=== PATIENT | male | born 1990 | race American Indian/Alaskan Native ===

== ENCOUNTER 2019-01-18 22:32 | Emergency (ER) | payer OTHER, SELFPAY ==
[2019-01-19] MEDS ORDERED: ZITHROMAX PO ONE (01:36)
[2019-01-19] MEDS ORDERED: ROCEPHIN IM ONE (01:36)
[2019-01-19] MEDS ORDERED: XYLOCAINE 1% MPF 5 mL INFILTRATI ONE (01:36)
[2019-01-19] MEDS ORDERED: LIDOCAINE VISCOUS 2% PO ONE (01:36)
[2019-01-19] MEDS ORDERED: REGLAN PO ONE (01:37)
[2019-01-19] MEDS ORDERED: IBUPROFEN PO ONE (01:37)
--- NOTE | 2019-01-19 02:15 | Emergency Department Report ---
ED General Adult HPI - General Chief complaint: Sore Throat Stated complaint: THROAT PAIN WITH MUCUS Source: patient Mode of arrival: Ambulatory Limitations: No Limitations - History of Present Illness Initial comments: Patient is a 29-year-old -Pakistani male with no past medical history presents to the ED with complaint of acute onset persistent severe sore throat with dysphagia and swollen tonsils after having oral sex per days ago. The patient states that he is not sure whether the sore throat is from a sexual transmitted disease or streptococcal pharyngitis. Patient denies headache, nausea, vomiting, dizziness, chest pain, shortness of breath, fever or chills or nasal and sinus congestion. MD Complaint: SORE THROAT, SWOLLEN TONSILS -: Sudden, days(s) (3) Location: mouth Radiation: non-radiation Severity scale (0 -10): 5 Quality: burning, aching, sharp Consistency: constant Improves with: none Worsens with: eating Associated Symptoms: denies other symptoms. denies: confusion, chest pain, cough, diaphoresis, fever/chills, headaches, loss of appetite, malaise, rash, seizure, shortness of breath, syncope, weakness Treatments Prior to Arrival: none - Related Data Previous Rx's Medication Instructions Recorded Last Taken Type Ibuprofen [Motrin] 600 mg PO Q8H PRN #20 tablet 11/07/18 Unknown Rx Sulfamethoxazole/Trimethoprim 1 each PO BID #14 tablet 11/07/18 Unknown Rx [Bactrim DS TAB] Azithromycin [Zithromax Z-MIKE] 250 mg PO DAILY #6 tablet 01/19/19 Unknown Rx Ibuprofen [Motrin] 800 mg PO Q8HR PRN #20 tablet 01/19/19 Unknown Rx Lidocaine Viscous 2% 10 ml PO Q6H PRN #120 ml 01/19/19 Unknown Rx Allergies Allergy/AdvReac Type Severity Reaction Status Date / Time No Known Allergies Allergy Unverified 11/07/18 10:08 ED Review of Systems ROS: Stated complaint: THROAT PAIN WITH MUCUS Other details as noted in HPI Comment: All other systems reviewed and negative Constitutional: denies: chills, fever Eyes: denies: eye pain, eye discharge, vision change ENT: throat pain. denies: ear pain Respiratory: denies: cough, shortness of breath, wheezing Cardiovascular: denies: chest pain, palpitations Endocrine: no symptoms reported Gastrointestinal: denies: abdominal pain, nausea, diarrhea Genitourinary: denies: urgency, dysuria Musculoskeletal: denies: back pain, joint swelling, arthralgia Skin: denies: rash, lesions Neurological: denies: headache, weakness, paresthesias Psychiatric: denies: anxiety, depression Hematological/Lymphatic: denies: easy bleeding, easy bruising ED Past Medical Hx - Past Medical History Previous Medical History?: No - Surgical History Past Surgical History?: No - Social History Smoking Status: Never Smoker Substance Use Type: Alcohol - Medications Home Medications: Home Medications Medication Instructions Recorded Confirmed Last Taken Type Ibuprofen [Motrin] 600 mg PO Q8H PRN #20 tablet 11/07/18 Unknown Rx Sulfamethoxazole/Trimethoprim 1 each PO BID #14 tablet 11/07/18 Unknown Rx [Bactrim DS TAB] Azithromycin [Zithromax Z-MIKE] 250 mg PO DAILY #6 tablet 01/19/19 Unknown Rx Ibuprofen [Motrin] 800 mg PO Q8HR PRN #20 tablet 01/19/19 Unknown Rx Lidocaine Viscous 2% 10 ml PO Q6H PRN #120 ml 01/19/19 Unknown Rx ED Physical Exam - General Limitations: No Limitations General appearance: alert, in no apparent distress - Head Head exam: Present: atraumatic, normocephalic, normal inspection - Eye Eye exam: Present: normal appearance, PERRL, EOMI. Absent: scleral icterus, conjunctival injection, periorbital swelling, periorbital tenderness Pupils: Present: normal accommodation - ENT ENT exam: Present: mucous membranes moist, TM's normal bilaterally, normal external ear exam, other (Erythematous oropharyngeal area with mildly swollen tonsils with thick white exudates) - Neck Neck exam: Present: normal inspection, full ROM, lymphadenopathy. Absent: tenderness - Respiratory Respiratory exam: Present: normal lung sounds bilaterally. Absent: respiratory distress, wheezes, rales, rhonchi, chest wall tenderness, accessory muscle use, decreased breath sounds, prolonged expiratory - Cardiovascular Cardiovascular Exam: Present: regular rate, normal rhythm, normal heart sounds. Absent: systolic murmur, diastolic murmur, rubs, gallop - GI/Abdominal GI/Abdominal exam: Present: soft, normal bowel sounds. Absent: tenderness, guarding, rebound, hyperactive bowel sounds, hypoactive bowel sounds, organomegaly - Rectal Rectal exam: Present: deferred - Extremities Exam Extremities exam: Present: normal inspection, full ROM, normal capillary refill - Back Exam Back exam: Present: normal inspection, full ROM. Absent: tenderness, CVA tenderness (L), muscle spasm, paraspinal tenderness - Neurological Exam Neurological exam: Present: alert, oriented X3, CN II-XII intact, normal gait, reflexes normal - Psychiatric Psychiatric exam: Present: normal affect, normal mood - Skin Skin exam: Present: warm, dry, intact, normal color. Absent: rash ED Course - Reevaluation(s) Reevaluation #1: 01/19/19 02:20 Patient is alert and oriented 3 and is not in distress but anxious. Patient was treated in the ED with pain medication, and also given empirical treatment for sexually transmitted disease gonorrhea and chlamydia. Patient discharged home on medications and advised to follow up with [facility] for further tests. Patient advised to return to the ED immediately if symptoms get worse. ED Medical Decision Making - Medical Decision Making Patient is alert and oriented 3 and is not in distress but anxious. Patient was treated in the ED with pain medication, and also given empirical treatment for sexually transmitted disease gonorrhea and chlamydia. Patient discharged home on medications and advised to follow up with [facility] for further tests. Patient advised to return to the ED immediately if symptoms get worse. - Differential Diagnosis Acute streptococcal pharyngitis; Chlamydia pharyngitis; Viral pharyngitis Critical care attestation.: If time is entered above; I have spent that time in minutes in the direct care of this critically ill patient, excluding procedure time. ED Disposition Clinical Impression: Concern about STD in male without diagnosis Acute pharyngitis Qualifiers: Pharyngitis/tonsillitis etiology: other specified organisms Qualified Code(s): J02.8 - Acute pharyngitis due to other specified organisms Acute tonsillitis Qualifiers: Streptococcal tonsillitis recurrence: not specified as recurrent or not Disposition: -01 TO HOME OR SELFCARE Is pt being admited?: No Does the pt Need Aspirin: No Condition: Stable Instructions: Pharyngitis (ED), Safe Sex (ED), Sexually Transmitted Diseases (ED), Tonsillitis (ED) Additional Instructions: Take medications with food, drink plenty of fluids and follow up with your primary care physician in 5-7 days for reevaluation. Return to the ED im mediately if symptoms get worse. Consider following up with [facility] for further tests. Prescriptions: Lidocaine Viscous 2% 10 ml PO Q6H PRN #120 ml PRN Reason: Pain , Severe (7-10) Ibuprofen [Motrin] 800 mg PO Q8HR PRN #20 tablet PRN Reason: Pain , Severe (7-10) Azithromycin [Zithromax Z-MIKE] 250 mg PO DAILY #6 tablet Referrals: [facility] [Outside] - 3-5 Days Time of Disposition: 02:13 Print Language: GREEK
[2019-01-19 02:59] VITALS: BP 135/65
== END 2019-01-19 03:05 | disposition home or self-care (01) ==
LOC: ED 22:32
DX: J02.0 Streptococcal pharyngitis (principal); A64 Unspecified sexually transmitted disease; Z79.1 Long term (current) use of non-steroidal anti-inflammatories (NSAID)
CPT/HCPCS: 96372; 99282; J0696

== ENCOUNTER 2019-01-24 10:35 | Emergency (ER) | payer OTHER, SELFPAY ==
[2019-01-24 10:51] VITALS: BP 139/71
--- NOTE | 2019-01-24 11:19 | Emergency Department Report ---
ED ENT HPI - General Chief complaint: Sore Throat Stated complaint: TONSILS Time Seen by Provider: 01/24/19 11:13 Source: patient Mode of arrival: Ambulatory Limitations: No Limitations - History of Present Illness Initial comments: 29-year-old -N[place]ien male presents to the emergency room for follow-up to the right side throat pain with white patches for 5 days. Patient reports he noticed after having oral sex. Patient force that he was seen here on the third and was placed on antibiotics consisting of a azithromycin pain medication of ibuprofen and viscous lidocaine. Strep test today came negative. Patient reports that his symptoms are not getting any better. Patient denies any fever no nausea no vomiting abdominal pains he reports pain on the left side that's worse with swallowing. Patient reports is able to even drink without difficulty just pain with swallowing. MD complaint: sore throat Onset/Timin -: days(s) Location: throat Severity: severe Severity scale (0 -10): 8 Quality: stabbing, sharp Consistency: constant Improves with: none Worsens with: swallowing - Related Data Previous Rx's Medication Instructions Recorded Last Taken Type Ibuprofen [Motrin] 600 mg PO Q8H PRN #20 tablet 11/07/18 Unknown Rx Sulfamethoxazole/Trimethoprim 1 each PO BID #14 tablet 11/07/18 Unknown Rx [Bactrim DS TAB] Azithromycin [Zithromax Z-MIKE] 250 mg PO DAILY #6 tablet 01/19/19 Unknown Rx Lidocaine Viscous 2% 10 ml PO Q6H PRN #120 ml 01/19/19 Unknown Rx Ibuprofen [Motrin 800 MG tab] 800 mg PO Q8HR PRN #20 tablet 01/24/19 Unknown Rx Allergies Allergy/AdvReac Type Severity Reaction Status Date / Time No Known Allergies Allergy Unverified 11/07/18 10:08 ED Dental HPI - General Chief complaint: Sore Throat Stated complaint: TONSILS Time Seen by Provider: 01/24/19 11:13 Source: patient Mode of arrival: Ambulatory Limitations: No Limitations - Related Data Previous Rx's Medication Instructions Recorded Last Taken Type Ibuprofen [Motrin] 600 mg PO Q8H PRN #20 tablet 11/07/18 Unknown Rx Sulfamethoxazole/Trimethoprim 1 each PO BID #14 tablet 11/07/18 Unknown Rx [Bactrim DS TAB] Azithromycin [Zithromax Z-MIKE] 250 mg PO DAILY #6 tablet 01/19/19 Unknown Rx Lidocaine Viscous 2% 10 ml PO Q6H PRN #120 ml 01/19/19 Unknown Rx Ibuprofen [Motrin 800 MG tab] 800 mg PO Q8HR PRN #20 tablet 01/24/19 Unknown Rx Allergies Allergy/AdvReac Type Severity Reaction Status Date / Time No Known Allergies Allergy Unverified 11/07/18 10:08 ED Review of Systems ROS: Stated complaint: TONSILS Other details as noted in HPI Comment: All other systems reviewed and negative Constitutional: denies: chills, fever ENT: throat pain ED Past Medical Hx - Social History Smoking Status: Never Smoker Substance Use Type: None - Medications Home Medications: Home Medications Medication Instructions Recorded Confirmed Last Taken Type Ibuprofen [Motrin] 600 mg PO Q8H PRN #20 tablet 11/07/18 Unknown Rx Sulfamethoxazole/Trimethoprim 1 each PO BID #14 tablet 11/07/18 Unknown Rx [Bactrim DS TAB] Azithromycin [Zithromax Z-MIKE] 250 mg PO DAILY #6 tablet 01/19/19 Unknown Rx Lidocaine Viscous 2% 10 ml PO Q6H PRN #120 ml 01/19/19 Unknown Rx Ibuprofen [Motrin 800 MG tab] 800 mg PO Q8HR PRN #20 tablet 01/24/19 Unknown Rx ED Physical Exam - General Limitations: No Limitations General appearance: alert, in no apparent distress - Head Head exam: Present: atraumatic, normocephalic - Eye Eye exam: Present: normal appearance - Expanded ENT Exam Expanded Throat exam: Positive: tonsillar erythema, tonsillar exudate - Neurological Exam Neurological exam: Present: alert, oriented X3, normal gait - Psychiatric Psychiatric exam: Present: normal affect, normal mood - Skin Skin exam: Present: warm, dry, intact, normal color. Absent: rash ED Course Vital Signs 01/24/19 10:42 Temperature 97.9 F Pulse Rate 89 Respiratory 18 Rate Blood Pressure 139/71 O2 Sat by Pulse 100 Oximetry ED Medical Decision Making - Medical Decision Making 29-year-old male comes in for sore throat does not improve. Discussed the patient we'll check a Monospot strep test was negative informed patient if Monospot is negative we'll treat him with Rocephin and to have him follow up with the ear nose and throat doctor. Patient continue taking ibuprofen for pain management. Critical care attestation.: If time is entered above; I have spent that time in minutes in the direct care of this critically ill patient, excluding procedure time. ED Disposition Clinical Impression: Acute pharyngitis Disposition: TO HOME OR SELFCARE Is pt being admited?: No Does the pt Need Aspirin: No Condition: Stable Instructions: Pharyngitis (ED) Additional Instructions: Pain medication as needed. Dre water intake and take with food. Prescriptions: Ibuprofen [Motrin 800 MG tab] 800 mg PO Q8HR PRN #20 tablet PRN Reason: Pain , Severe (7-10) Referrals: RUBÉN NICOLE MD [Primary Care Provider] - 3-5 Days
[2019-01-24] MEDS ORDERED: ROCEPHIN IM ONE (13:51)
[2019-01-24] MEDS ORDERED: XYLOCAINE 1% MPF 5 mL INFILTRATI ONE (13:51)
== END 2019-01-24 14:00 | disposition home or self-care (01) ==
LOC: ED 10:35
DX: J02.9 Acute pharyngitis, unspecified (principal); Z79.899 Other long term (current) drug therapy
CPT/HCPCS: 36415; 86308; 87116; 87430; 96372; 99283; J0696

== ENCOUNTER 2019-02-02 10:38 | Emergency (ER) | payer OTHER, SELFPAY ==
[2019-02-02 11:52] LABS: Hematocrit 42.9 % (35.5-45.6); Hemoglobin 14.4 gm/dl (11.8-15.2); Mean Corpuscular HGB Conc 34 % (32-34); Mean Corpuscular Volume 77 fl (84-94); Platelet Count 218 K/mm3 (140-440); Red Blood Count 5.55 M/mm3 (3.65-5.03); Red Cell Distribution Width 16.2 % (13.2-15.2)
[2019-02-02 12:02] LABS: BUN/Creatinine Ratio 9; Blood Urea Nitrogen 9 mg/dL (9-20); Calcium 9.5 mg/dL (8.4-10.2); Hemolysis Index 29
[2019-02-02] MEDS ORDERED: ZOFRAN IV ONE (12:20)
[2019-02-02] MEDS ORDERED: NACL 0.9% 1000 ML 1,000 ML IV ONE (12:20)
--- NOTE | 2019-02-02 13:42 | Emergency Department Report ---
ED General Adult HPI - General Chief complaint: Abdominal Pain Stated complaint: CRAMPS/WEAKNESS Time Seen by Provider: 02/02/19 11:40 Source: patient Mode of arrival: Ambulatory Limitations: No Limitations - History of Present Illness Initial comments: The patient presents to the emergency department with a chief complaint of abdominal pain that has been present for the last 3 weeks. Patient states 3 weeks ago treated for STD with antibiotics and since that time has had abdominal cramping with nausea and vomiting. -: Gradual Location: abdomen Radiation: non-radiation Severity scale (0 -10): 0 Quality: other (cramping) Consistency: constant Improves with: none Worsens with: none Associated Symptoms: denies other symptoms Treatments Prior to Arrival: none - Related Data Previous Rx's Medication Instructions Recorded Last Taken Type Ibuprofen [Motrin] 600 mg PO Q8H PRN #20 tablet 11/07/18 Unknown Rx Sulfamethoxazole/Trimethoprim 1 each PO BID #14 tablet 11/07/18 Unknown Rx [Bactrim DS TAB] Azithromycin [Zithromax Z-MIKE] 250 mg PO DAILY #6 tablet 01/19/19 Unknown Rx Lidocaine Viscous 2% 10 ml PO Q6H PRN #120 ml 01/19/19 Unknown Rx Ibuprofen [Motrin 800 MG tab] 800 mg PO Q8HR PRN #20 tablet 01/24/19 Unknown Rx Dicyclomine [Bentyl] 10 mg PO QID PRN #20 capsule 02/02/19 Unknown Rx Nystatin [Nystatin SUSP] 10 ml PO TID #250 ml 02/02/19 Unknown Rx Promethazine [Phenergan TAB] 25 mg PO Q6HR PRN #20 tab 02/02/19 Unknown Rx Allergies Allergy/AdvReac Type Severity Reaction Status Date / Time No Known Allergies Allergy Verified 02/02/19 10:51 ED Review of Systems ROS: Stated complaint: CRAMPS/WEAKNESS Other details as noted in HPI Comment: All other systems reviewed and negative Constitutional: denies: chills, fever Eyes: denies: eye pain, eye discharge, vision change ENT: denies: ear pain, throat pain Respiratory: denies: cough, shortness of breath, wheezing Cardiovascular: denies: chest pain, palpitations Endocrine: no symptoms reported Gastrointestinal: nausea, vomiting. denies: abdominal pain, diarrhea Genitourinary: denies: urgency, dysuria Musculoskeletal: denies: back pain, joint swelling, arthralgia Skin: denies: rash, lesions Neurological: denies: headache, weakness, paresthesias Psychiatric: denies: anxiety, depression Hematological/Lymphatic: denies: easy bleeding, easy bruising ED Past Medical Hx - Past Medical History Previous Medical History?: No - Surgical History Past Surgical History?: No - Social History Smoking Status: Never Smoker Substance Use Type: Alcohol - Medications Home Medications: Home Medications Medication Instructions Recorded Confirmed Last Taken Type Ibuprofen [Motrin] 600 mg PO Q8H PRN #20 tablet 11/07/18 Unknown Rx Sulfamethoxazole/Trimethoprim 1 each PO BID #14 tablet 11/07/18 Unknown Rx [Bactrim DS TAB] Azithromycin [Zithromax Z-MIKE] 250 mg PO DAILY #6 tablet 01/19/19 Unknown Rx Lidocaine Viscous 2% 10 ml PO Q6H PRN #120 ml 01/19/19 Unknown Rx Ibuprofen [Motrin 800 MG tab] 800 mg PO Q8HR PRN #20 tablet 01/24/19 Unknown Rx Dicyclomine [Bentyl] 10 mg PO QID PRN #20 capsule 02/02/19 Unknown Rx Nystatin [Nystatin SUSP] 10 ml PO TID #250 ml 02/02/19 Unknown Rx Promethazine [Phenergan TAB] 25 mg PO Q6HR PRN #20 tab 02/02/19 Unknown Rx ED Physical Exam - General Limitations: No Limitations General appearance: alert, in no apparent distress - Head Head exam: Present: atraumatic, normocephalic - Eye Eye exam: Present: normal appearance, PERRL, EOMI - ENT ENT exam: Present: mucous membranes moist, other (white patches present on the tongue consistent with Cathy) - Neck Neck exam: Present: normal inspection - Respiratory Respiratory exam: Present: normal lung sounds bilaterally. Absent: respiratory distress - Cardiovascular Cardiovascular Exam: Present: regular rate, normal rhythm. Absent: systolic murmur, diastolic murmur, rubs, gallop - GI/Abdominal GI/Abdominal exam: Present: soft, tenderness (diffusely tender to palpation), normal bowel sounds. Absent: distended - Rectal Rectal exam: Present: deferred - Extremities Exam Extremities exam: Present: normal inspection - Back Exam Back exam: Present: normal inspection - Neurological Exam Neurological exam: Present: alert, oriented X3 - Psychiatric Psychiatric exam: Present: normal affect, normal mood - Skin Skin exam: Present: warm, dry, intact, normal color. Absent: rash ED Course Vital Signs 02/02/19 10:51 Temperature 98.5 F Pulse Rate 85 Respiratory 18 Rate Blood Pressure 113/68 [Right] O2 Sat by Pulse 99 Oximetry ED Medical Decision Making - Lab Data Result diagrams: 02/02/19 11:28 02/02/19 11:28 Lab Results 02/02/19 02/02/19 02/02/19 Range/Units 11:28 11:28 14:20 WBC 7.4 (4.5-11.0) K/mm3 RBC 5.55 H (3.65-5.03) M/mm3 Hgb 14.4 (11.8-15.2) gm/dl Hct 42.9 (35.5-45.6) % MCV 77 L (84-94) fl MCH 26 L (28-32) pg MCHC 34 (32-34) % RDW 16.2 H (13.2-15.2) % Plt Count 218 (140-440) K/mm3 Sodium 140 (137-145) mmol/L Potassium 4.5 (3.6-5.0) mmol/L Chloride 104.4 (98-107) mmol/L Carbon Dioxide 27 (22-30) mmol/L Anion Gap 13 mmol/L BUN 9 (9-20) mg/dL Creatinine 1.0 (0.8-1.5) mg/dL Estimated GFR > 60 ml/min BUN/Creatinine Ratio 9 % Glucose 114 H (75-100) mg/dL Calcium 9.5 (8.4-10.2) mg/dL Urine Color Yellow (Yellow) Urine Turbidity Clear (Clear) Urine pH 6.0 (5.0-7.0) Ur Specific [place] 1.012 (1.003-1.030) Urine Protein <15 mg/dl (Negative) mg/dL Urine Glucose (UA) Neg (Negative) mg/dL Urine Ketones Neg (Negative) mg/dL Urine Blood Neg (Negative) Urine Nitrite Neg (Negative) Urine Bilirubin Neg (Negative) Urine Urobilinogen < 2.0 (<2.0) mg/dL Ur Leukocyte Esterase Neg (Negative) Urine WBC (Auto) < 1.0 (0.0-6.0) /HPF Urine RBC (Auto) 1.0 (0.0-6.0) /HPF Urine Bacteria (Auto) 1+ (Negative) /HPF - Radiology Data Radiology results: report reviewed - Medical Decision Making Discussed results with the patient Discussed with patient the patches on his tongue are likely due to the recent antibiotic use Critical care attestation.: If time is entered above; I have spent that time in minutes in the direct care of this critically ill patient, excluding procedure time. ED Disposition Clinical Impression: Abdominal pain, Thrush, oral, Nausea & vomiting Disposition: - TO HOME OR SELFCARE Is pt being admited?: No Does the pt Need Aspirin: No Condition: Stable Instructions: Abdominal Pain (ED), Oral Candidiasis (ED), Acute Nausea and Vomiting (ED) Additional Instructions: Return if worse Prescriptions: Nystatin [Nystatin SUSP] 10 ml PO TID #250 ml Referrals: FARHAN BUENOMAPLETON MD PRANAY [Primary Care Provider] - 3-5 Days [facility] [Provider Group] - 3-5 Days [facility] [Provider Group] - 3-5 Days Time of Disposition: 16:02
[2019-02-02 14:48] LABS: Bacteria,Urine 1+ /HPF (Negative); Bilirubin,Urine NEG (Negative); Blood,Urine NEG (Negative); Color,Urine Yellow (Yellow); Protein,Urine <15 mg/dL mg/dL (Negative); Urobilinogen,Urine < 2.0 mg/dL (<2.0); WBC,Urine < 1.0 /HPF (0.0-6.0)
--- NOTE | 2019-02-02 15:25 | Cat Scan Report ---
CT ABDOMEN AND PELVIS WITHOUT CONTRAST HISTORY: Generalized abdominal pain COMPARISON: None. TECHNIQUE: Axial CT images were obtained through the abdomen and pelvis without IV contrast. Sagittal and coronal reformatted images. All CT scans at this location are performed using CT dose reduction for ALARA by means of automated exposure control. FINDINGS: CT ABDOMEN: Lung Bases: Clear. Liver: No significant abnormality. Biliary: No significant abnormality. Spleen: No significant abnormality. Unenlarged. Pancreas: No significant abnormality. Adrenals: No significant abnormality. Kidneys: No significant abnormality. Lymphatics: No lymphadenopathy. Vasculature: No significant abnormality. Bowel/Peritoneum: No significant abnormality. No free air. No free fluid. Normal appendix. CT PELVIS: : No significant abnormality. Osseous Structures: No significant abnormality. Additional Findings: None IMPRESSION: No significant abnormality. Signer Name: Walter Bertrand Jr, MD Signed: 02/02/2019 3:21 PM Workstation Name: [id number]
[2019-02-02 16:20] LABS: Mucus,Urine FEW /HPF
[2019-02-02 16:26] VITALS: BP 117/61
== END 2019-02-02 16:26 | disposition home or self-care (01) ==
LOC: ED 10:38
DX: R10.9 Unspecified abdominal pain (principal); R11.2 Nausea with vomiting, unspecified; B37.0 Candidal stomatitis
CPT/HCPCS: 36415; 74176; 80048; 81001; 85027; 96361; 96374; 99284; J2405; J7030

== ENCOUNTER 2019-09-21 19:05 | Emergency (ER) | payer OTHER ==
[2019-09-21 21:02] VITALS: BP 111/75
== END 2019-09-21 23:20 | disposition left against medical advice (07) ==
LOC: ED 19:05
DX: M79.651 Pain in right thigh (principal); Z53.21 Procedure and treatment not carried out due to patient leaving prior to being seen by health care provider

== ENCOUNTER 2019-09-28 18:32 | Emergency (ER) | payer OTHER ==
--- NOTE | 2019-09-28 20:13 | Emergency Department Report ---
Chief Complaint: Medical Clearance Stated Complaint: ILLNESS Time Seen by Provider: 09/28/19 20:09 - HPI History of Present Illness: This is a 29-year-old male nontoxic, well in appearance with no signsPatient stated that his partner called and said has STD. Patient stated he is asymptotic. Denies any penile discharge, testicular pain, or swelling. Patient denies any urinary symptoms. Patient denies any fever, chills, headache, nausea, vomiting, chest pain or shortness of breathe. denies any other symptoms or complaints. Denies any allergies or PMH. - Exam Physical Exam: Normal physical exam. MSE screening note: Focused history and physical exam performed. Due to findings the following was ordered: ED Medical Decision Making - Medical Decision Making PAtient present with a nonmedical emergency. Patient was instructed to Follow- up with a primary care doctor in 3-5 days or if symptoms worsen and continue return to emergency room as soon as possible. At time of discharge, the patient does not seem toxic or ill in appearance. No acute signs of distress noted. Patient agrees to discharge treatment plan of care. No further questions noted by the patient. ED Disposition for MSE Clinical Impression: Encounter to obtain excuse from work Disposition: Z-07 MED SCREENING EXAM-LEFT Is pt being admited?: No Does the pt Need Aspirin: No Condition: Stable Additional Instructions: Follow-up with a primary care doctor in 3-5 days or if symptoms worsen and continue return to emergency room as soon as possible. Referrals: MELVINA PETER MD [Primary Care Provider] - 3-5 Days PAUL CABAN MD [Staff Physician] - 3-5 Days [facility] [Outside] - 3-5 Days
[2019-09-28 20:14] VITALS: BP 126/68
== END 2019-09-28 20:32 | disposition left against medical advice (07) ==
LOC: ED 18:32
DX: Z02.79 Encounter for issue of other medical certificate (principal)
CPT/HCPCS: 99281